=== PATIENT | male | born 1940 | race Caucasian/White ===

== ENCOUNTER 2017-12-12 14:37 | Emergency (ER) | payer OTHER ==
[2017-12-12] MEDS ORDERED: NS 1,000 ML IV ONE (14:46)
--- NOTE | 2017-12-12 14:50 | EDPHY ---
H & P Stated Complaint: Low HR Time Seen by Provider: 12/12/17 14:38 HPI/ROS: CHIEF COMPLAINT: Low heart rate HISTORY OF PRESENT ILLNESS: Patient is a 77-year-old man who noticed that his heart rate was low in the 50s on his pulse oximeter at home and decided to call 911. He is asymptomatic. He has not felt lightheaded or dizzy. No chest pain or shortness of breath. He has an oximeter at home because his had heart disease before she 3 years ago. He states that he just checks periodically. He stated he also noticed his pulse is regular today. Paramedics arrived and obtain an EKG that shows multiple PVCs. He denies recent illness or infection. He does have a sole blacker Dr. Dharmesh Ochoa who he occasionally has check ups with because that is his saw. He does have a strong family history for cardiac disease. He does have hypothyroidism but no recent medication adjustments. REVIEW OF SYSTEMS: Constitutional: denies: chills, fever, recent illness, recent injury EENTM: denies: blurred vision, double vision, nose congestion Respiratory: denies: cough, shortness of breath Cardiac: See HPI denies: chest pain, lightheadedness, palpitations Gastrointestinal/Abdominal: denies: abdominal pain, diarrhea, nausea, vomiting, blood streaked stools Genitourinary: denies: dysuria, frequency, hematuria, pain Musculoskeletal: denies: joint pain, muscle pain Skin: denies: lesions, rash, jaundice, bruising Neurological: denies: headache, numbness, paresthesia, tingling, dizziness, weakness Hematologic/Lymphatic: denies: blood clots, easy bleeding, easy bruising Immunologic/allergic: denies: HIV/AIDS, transplant EXAM: GENERAL: Well-appearing, well-nourished and in no acute distress. HEAD: Atraumatic, normocephalic. EYES: Pupils equal round and reactive to light, extraocular movements intact, sclera anicteric, conjunctiva are normal. ENT: TMs normal, nares patent, oropharynx clear without exudates. Moist mucous membranes. NECK: Normal range of motion, supple without lymphadenopathy or JVD. LUNGS: Breath sounds clear to auscultation bilaterally and equal. No wheezes rales or rhonchi. HEART: Irregular rhythm in the 70s, without murmurs, rubs or gallops. ABDOMEN: Soft, nontender, normoactive bowel sounds. No guarding, no rebound. No masses appreciated. BACK: No CVA tenderness, no spinal tenderness, step-offs or deformities EXTREMITIES: Normal range of motion, no pitting or edema. No clubbing or cyanosis. NEUROLOGICAL: Cranial nerves II through XII grossly intact. Normal speech, normal gait. 5/5 strength, normal movement in all extremities, normal sensation PSYCH: Normal mood, normal affect. SKIN: Warm, dry, normal turgor, no visible rashes or lesions. Source: Patient Exam Limitations: No limitations - Medical/Surgical History Hx Asthma: No Hx Chronic Respiratory Disease: No Hx Diabetes: No Hx Cardiac Disease: No Hx Renal Disease: No Hx Cirrhosis: No Hx Alcoholism: No Hx HIV/AIDS: No Hx Splenectomy or Spleen Trauma: No Other PMH: HTN, Hypercholesterolemia, "3 knee scopes(last 10 yrs ago, and 3 hernia repair (last 30 years ago)," MOHAN CELL CARCINOMA, FINISHED RADIATION - Family History Significant Family History: No pertinent family hx - Social History Smoking Status: Never smoked Alcohol Use: None Constitutional: Initial Vital Signs Temperature (C) 37.0 C 12/12/17 14:39 Heart Rate 79 12/12/17 14:39 Respiratory Rate 18 12/12/17 14:39 Blood Pressure 172/88 H 12/12/17 14:39 O2 Sat (%) 96 12/12/17 14:39 O2 Delivery Mode Room Air Allergies/Adverse Reactions: lisinopril Allergy (Verified 12/12/17 14:43) Home Medications: Medication Instructions Recorded Aspirin [Aspirin 81mg (OTC)] 81 mg PO DAILY 11/16/13 Cimetidine [Tagamet Hb] 200 mg PO DAILY 11/16/13 Herbals/Supplements -Info Only 1 tab PO BID 11/16/13 Ibuprofen [Motrin] 200 mg PO HS 11/16/13 Lovastatin 40 mg PO DAILY 11/16/13 Multivitamins [Tab-A-Carol] 1 tab PO DAILY 11/16/13 Valsartan/Hydrochlorothiazide 1 tab PO DAILY 11/16/13 [Valsartan-Hctz 320-12.5 mg Tab] diphenhydrAMINE [Benadryl] 50 mg PO HS 11/16/13 Medical Decision Making - Diagnostics EKG Interpretation: An EKG obtained and was read and documented in trace view. Please see trace view for full reading and report. Sinus rhythm with multiple PVCs, rate of 70, no acute ischemic changes Imaging Results: Imaging Impressions Chest X-Ray 12/12/17 14:46 Impression: Pulmonary venous hypertension versus left to right shunt. Imaging: Discussed imaging studies w/ call center supervisor Radiologist Procedures: Procedure: Procedural sedation. Indication: Wrist reduction. A pre-sedation evaluation was completed on the patient just prior to the procedure. Patient is an appropriate candidate for procedural sedation with a normal 3-3-2 rule assessment and a Mallampati airway score of class 1-4. The risks of the sedation were discussed including but not limited to dysrhythmia, need for airway intervention or general anesthesia, disability, ; and verbal consent obtained. A timeout was observed and patient's identity confirmed. The patient was sedated with ketamine. The patient was monitored with continuous pulse oximetry, capnography, and paralegal specialist. There were no complications and no significant hypoxemia. I remained at the bedside for the sedation. The total time I spent in the procedural sedation was 16 minutes. Procedure: Splint placement. A sugar-tong splint was applied. After application of the splint I returned and re-examined the patient. The splint was adequately immobilizing the joint and distal to the splint the patient's circulation and sensation was intact. Orthopedic reduction: Right Colles fracture reduced with traction and manipulation. Splinted in place ED Course/Re-evaluation: 4:30 p.m. I discussed the case with Dr. Zandra Rollins who agrees with discharge in outpatient follow-up on Thursday. 4:50 p.m. patient continues to feel asymptomatic. His vital signs are stable. I will discharge him at this point. He is happy with this plan and declines further workup or testing. Differential Diagnosis: Partial list of the Differential diagnosis considered include but were not limited to; arrhythmia, PVC and although unlikely based on the history and physical exam, I also considered acute coronary disease, hypotension, syncope. I discussed these differential diagnoses and the plan with the patient as well as the usual and expected course. The patient understands that the diagnosis is provisional and that in medicine we are not always correct and that further workup is often warranted. Usual and customary warnings were given. All of the patient's questions were answered. The patient was instructed to return to the emergency department should the symptoms at all worsen or return, otherwise to followup with the physician as we discussed. - Data Points Laboratory Results: Laboratory Results 12/12/17 15:00 12/12/17 15:00 12/12/17 12/12/17 15:00 15:00 WBC 4.44 10^3/uL 10^3/uL (3.80-9.50) RBC 4.61 10^6/uL 10^6/uL (4.40-6.38) Hgb 14.8 g/dL g/dL (13.7-17.5) Hct 42.6 % % (40.0-51.0) MCV 92.4 fL fL (81.5-99.8) MCH 32.1 pg pg (27.9-34.1) MCHC 34.7 g/dL g/dL (32.4-36.7) RDW 13.3 % % (11.5-15.2) Plt Count 145 10^3/uL L 10^3/uL (150-400) MPV 9.7 fL fL (8.7-11.7) Neut % (Auto) 72.9 % % (39.3-74.2) Lymph % (Auto) 15.1 % % (15.0-45.0) [place] % (Auto) 10.4 % % (4.5-13.0) Eos % (Auto) 0.7 % % (0.6-7.6) Baso % (Auto) 0.7 % % (0.3-1.7) Nucleat RBC Rel Count 0.0 % % (0.0-0.2) Absolute Neuts (auto) 3.24 10^3/uL 10^3/uL (1.70-6.50) Absolute Lymphs (auto) 0.67 10^3/uL L 10^3/uL (1.00-3.00) Absolute Monos (auto) 0.46 10^3/uL 10^3/uL (0.30-0.80) Absolute Eos (auto) 0.03 10^3/uL 10^3/uL (0.03-0.40) Absolute Basos (auto) 0.03 10^3/uL 10^3/uL (0.02-0.10) Absolute Nucleated RBC 0.00 10^3/uL 10^3/uL (0-0.01) Immature Gran % 0.2 % % (0.0-1.1) Immature Gran # 0.01 10^3/uL 10^3/uL (0.00-0.10) Sodium 144 mEq/L mEq/L (135-145) Potassium 3.9 mEq/L mEq/L (3.5-5.2) Chloride 107 mEq/L mEq/L (97-110) Carbon Dioxide 27 mEq/l mEq/l (22-31) Anion Gap 10 mEq/L mEq/L (8-16) BUN 15 mg/dL mg/dL (7-23) Creatinine 0.8 mg/dL mg/dL (0.7-1.3) Estimated GFR > 60 Glucose 103 mg/dL H mg/dL (70-100) Calcium 8.9 mg/dL mg/dL (8.5-10.4) Troponin I < 0.012 ng/mL ng/mL (0.000-0.034) TSH 1.500 uIU/mL uIU/mL (0.465-4.680) Free T4 1.40 ng/dL ng/dL (0.59-2.19) Medications Given: Discontinued Medications Sodium Chloride (Ns) 1,000 mls @ 0 mls/hr IV EDNOW ONE; Wide Open PRN Reason: Protocol Stop: 12/12/17 14:47 Last Admin: 12/12/17 15:29 Dose: 1,000 mls Departure - Departure Disposition: Home, Routine, Self-Care Clinical Impression: PVC (premature ventricular contraction) Condition: Fair Instructions: Premature Ventricular Contractions (ED) Referrals: Patient,NotPresent [Unknown] - As per Instructions Amandeep Ochoa MD [Medical Doctor] - 2-3 days, call for appt.
--- NOTE | 2017-12-12 14:55 | CPEKG ---
Heart Rate: 70 RR Interval: 857 P-R Interval: 188 QRSD Interval: 84 QT Interval: 392 QTC Interval: 423 P [place]: 73 QRS [place]: 14 T Wave [place]: 11 EKG Severity - ABNORMAL ECG - EKG Impression: SINUS RHYTHM EKG Impression: MULTIFORM VENTRICULAR PREMATURE COMPLEXES Electronically Signed By: Maximiliano Love 12-Dec-2017 15:09:49
[2017-12-12 15:16] LABS: PLATELET COUNT 145 10^3/uL (150-400)
[2017-12-12 16:54] VITALS: BP 156/66
== END 2017-12-12 17:02 | disposition home or self-care (01) ==
LOC: EDUNIT#
DX: I49.3 Ventricular premature depolarization (principal); E86.9 Volume depletion, unspecified; I10 Essential (primary) hypertension; Z79.82 Long term (current) use of aspirin

== ENCOUNTER 2018-01-12 08:46 | Day surgery (SDC) | payer OTHER ==
[2018-01-12] MEDS ORDERED: NS 500 ML IV ONE (08:49)
--- NOTE | 2018-01-12 09:50 | PDANEPAE ---
ANE History of Present Illness here for FAISAL ANE Past Medical History - Cardiovascular History Hx Hypertension: Yes Hx Arrhythmias: Yes Hx Chest Pain: No Hx Coronary Artery / Peripheral Vascular Disease: No Hx CHF / Valvular Disease: No Hx Palpitations: No - Pulmonary History Hx Asthma/Reactive Airway Disease: No Hx Recent Upper Respiratory Infection: No Hx Oxygen in Use at Home: No Hx Sleep Apnea: Yes - Endocrine History Hx Diabetes: No Hypothyroid: Yes Obesity: mild - Renal History Hx Renal Disorders: No - Liver History Hx Hepatic Disorders: No - Neurological & Psychiatric Hx Hx Neurological and Psychiatric Disorders: No - Cancer History Hx Cancer: Yes - Chronic Pain History Chronic Pain: No ANE Review of Systems Review of systems is: negative Review of Systems: - Exercise capacity Exercise capacity: >=4 METS ANE Patient History - Allergies Allergies/Adverse Reactions: lisinopril Allergy (Verified 12/12/17 14:43) - Home Medications Home medications: home medication list seen and reviewed Home Medications: Aspirin [Aspirin 81mg (OTC)] 81 mg PO DAILY 11/16/13 [Last Taken 11/15/13] Cimetidine [Tagamet Hb] 200 mg PO DAILY 11/16/13 [Last Taken 11/15/13] Herbals/Supplements -Info Only 1 tab PO BID 11/16/13 [Last Taken 11/15/13] Ibuprofen [Motrin] 200 mg PO HS 11/16/13 [Last Taken 11/15/13] Lovastatin 40 mg PO DAILY 11/16/13 [Last Taken 11/15/13] Multivitamins [Tab-A-Carol] 1 tab PO DAILY 11/16/13 [Last Taken 11/15/13] Valsartan/Hydrochlorothiazide [Valsartan-Hctz 320-12.5 mg Tab] 1 tab PO DAILY [Last Taken 11/15/13] diphenhydrAMINE [Benadryl] 50 mg PO HS 11/16/13 [Last Taken 11/15/13] - NPO status NPO Status: no food or drink >8 hours - Smoking Hx Smoking Status: Never smoked ANE Labs/Vital Signs - Vital Signs Vital Signs: reviewed preoperatively; see RN documention for details ANE Physical Exam - Airway Neck exam: FROM Mallampati Score: Class 1 - Pulmonary Pulmonary: no respiratory distress - Cardiovascular Cardiovascular: regular rate and rhythym - ASA Status ASA Status: III ANE Anesthesia Plan Anesthesia Plan: GA with mask
[2018-01-12] MEDS ORDERED: PROPOFOL 200 MG/20 ML VIAL ONE (09:57)
--- NOTE | 2018-01-12 10:02 | PDHPUP ---
History & Physical Update H&P update statement: This history and physical update is based on an assessment of the patient which was completed after admission or registration (within 24 hours), but prior to the surgery/procedure. H&P update: H&P reviewed & patient examined, no change in patient's condition since H&P completed
--- NOTE | 2018-01-12 11:16 | POSTANESTH ---
Post Anesthetic Evaluation Cardiovascular Status: Normal, Stable Respiratory Status: Normal, Stable Level of Consciousness/Mental Status: Can Participate in Eval Pain Control: Adequate, Prn Tx Ordered Nausea/Vomiting Control: Adequate, Prn Tx Ordered Complications Possibly Related to Anesthesia: None Noted
--- NOTE | 2018-01-12 13:01 | ECHO ---
[email or web address] [address] [address] Main: [phone] Fax: Transesophageal Echocardiography Name: ROSALBA MONGE MR#: [id number] Study Date: 01/12/2018 Study Time: 09:54 AM Date of : 1940 Age: 77 year(s) Height: ( ) Weight: ( ) BSA: Gender: Male Examination: Indication: Murmur Image Quality: Contrast: Requested by: Amandeep Ochoa Heart Rate: Rhythm: Normal sinus rhythm BP: / Procedure Staff Clothes Shaker: Guilherme Wilburn RDCS Reading Physician: Amandeep Ochoa MD Requesting Provider: FAISAL Exam Details Conclusions: The patient was in sinus rhythm at the time of the study. Normal left ventricular size and systolic function. LVEF estimated at 55-60%. Normal left ventricular wall motion. Trileaflet aortic valve without stenosis or insufficiency. 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 Normal-appearing tricuspid valve with mild tricuspid regurgitation. Poorly visualized pulmonic valve with mild pulmonic insufficiency. Mild left atrial enlargement. Normal right-sided chamber dimensions. Intact interatrial septum on color flow Doppler in 2 dimensional imaging. Agitated saline contrast study suggest the presence of a very small patent foramina ovale. No evidence of pericardial effusion. Measurements: Chambers Valvular Assessment AV/MV Valvular Assessment TV/PV Normal Normal Normal Name Value Range Name Value Range Name Value Range Additional Measurements: Findings: Left Ventricle: Normal global systolic LV function. Left Atrium: An agitated saline study was performed and was negative for intracardiac shunting. Left Atrial Appendage: Good color flow doppler in the left atrial appendage. 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 There is P2 flail and hypermobile chordae with moderate to severe MR. There is no evidence of pulmonary vein reversal.. Aortic Valve: The aortic valve is normal in appearance and function. Tricuspid Valve: The tricuspid valve is normal in appearance and function. Pulmonic Valve: The pulmonic valve is normal in appearance and function. Aorta: The aorta is normal. Pericardium: No pericardial effusion. l1n (No Signature Object) Patient: ROSALBA MONGE Study Date: 01/12/2018 Page 2 of 2 09:54 AM [id number]
== END 2018-01-12 12:34 | disposition home or self-care (01) ==
LOC: FCATH 08:46
PROVIDERS: ATTEND Internal Medicine Cardiovascular Disease
PROC: B245ZZ4 Ultrasonography of Left Heart, Transesophageal (ICD-10-PCS; principal; 2018-01-12)
DX: I49.9 Cardiac arrhythmia, unspecified (principal); E78.5 Hyperlipidemia, unspecified; E78.00 Pure hypercholesterolemia, unspecified; I73.9 Peripheral vascular disease, unspecified; I10 Essential (primary) hypertension; G47.33 Obstructive sleep apnea (adult) (pediatric); Z99.81 Dependence on supplemental oxygen
CPT/HCPCS: J2704

== ENCOUNTER → 2018-03-08 | Outpatient (CLI) | payer OTHER | LOC: FIMAGING 10:26 | PROVIDERS: ATTEND Thoracic Surgery (Cardiothoracic Vascular Surgery) | DX: Z98.890 Other specified postprocedural states (principal); J90 Pleural effusion, not elsewhere classified; Z95.2 Presence of prosthetic heart valve ==

== ENCOUNTER 2019-01-12 05:45 | Inpatient (IN) | payer OTHER | END 2019-01-13 09:41 | disposition home or self-care (01) | LOC: F3N 05:45 ==